=== PATIENT | male | born 1950 | race Caucasian/White ===

== ENCOUNTER → 2016-12-06 | Day surgery (SDC) | payer OTHER, MEDICARE | END | disposition home or self-care (01) | LOC: BMCIMAGING 08:40 | PROVIDERS: ATTEND Urology | PROC: 0VB03ZX Excision of Prostate, Percutaneous Approach, Diagnostic (ICD-10-PCS; principal; 2016-12-06) | DX: R97.20 Elevated prostate specific antigen [PSA] (principal) ==

== ENCOUNTER → 2018-03-16 | Outpatient (CLI) | payer OTHER, MEDICARE ==
[~2018-03-16] MED LIST: GADOBUTROL 10 ML VIAL IVP ONE
== END ==
LOC: FIMAGING 15:58
PROVIDERS: ATTEND Urology
DX: R97.20 Elevated prostate specific antigen [PSA] (principal)
CPT/HCPCS: A9585

== ENCOUNTER 2018-03-30 14:04 | Outpatient (CLI) | payer OTHER, MEDICARE ==
[2018-03-30] MEDS ORDERED: MIDAZOLAM 2 MG/2 ML VIAL IVP PRN (14:35)
[2018-03-30] MEDS ORDERED: FLUMAZENIL 0.5 MG/5 ML MDV IVP PRN (14:35)
[2018-03-30] MEDS ORDERED: fentaNYL 100 MCG/2 ML INJ IVP PRN (14:35)
[2018-03-30] MEDS ORDERED: NALOXONE HCL 0.4 MG/ML INJ IVP PRN (14:35)
[2018-03-30] MEDS ORDERED: NS 1,000 ML IV SCH (14:45)
[2018-03-30] MEDS ORDERED: GADOBUTROL 10 ML VIAL IVP ONE (15:47)
--- NOTE | 2018-03-30 16:41 | PDGENHP ---
History & Physical Chief Complaint: elevated PSA Cardiorespiratory Assessment: RRR, lungs clear
--- NOTE | 2018-03-30 16:42 | PDPROPOC ---
Sedation Plan of Care Sedation Plan of Care: vital signs stable, mental status noted, patient educated of risks, benefits, alternatives, patient can tolerate sedation ASA Classification: ASA 1 Planned drugs: fentanyl, midazolam Mallampati Score: Class 1 Mallampati Reference Image: Patient passed 3-3-2 rule?: Yes
[2018-03-30] MEDS ORDERED: ACETAMINOPHEN 325 MG TAB PO PRN (17:43)
[2018-03-30] MEDS ORDERED: ONDANSETRON 4 MG/2 ML VIAL IVP PRN (17:43)
[2018-03-30 18:24] VITALS: BP 128/71
== END 2018-03-30 18:30 | disposition home or self-care (01) ==
LOC: FIMAGING 14:04
PROVIDERS: ATTEND Urology
DX: R97.20 Elevated prostate specific antigen [PSA] (principal); Z96.641 Presence of right artificial hip joint
CPT/HCPCS: 72197; 76377; A9585; J2250; J3010; J2310

== ENCOUNTER 2019-03-10 11:41 | Outpatient (CLI) | payer OTHER, MEDICARE | END 2019-03-10 15:38 | disposition home or self-care (01) | LOC: FIMAGING 11:41 ==